=== PATIENT | male | born 1955 ===

== ENCOUNTER 2020-05-22 13:51 | Emergency (ER) | payer BC, OTHER ==
--- NOTE | 2020-05-22 14:03 | TELE ---
HPI Do you have fever,cough or shortness of breath?: No - General Reason For Visit: COVID TESTING History Source: Family Past History - Medical History Allergies/Adverse Reactions: Allergies Allergy/AdvReac Type Severity Reaction Status Date / Time No Known Allergies Allergy Unverified 05/08/14 22:49 Home Medications: Ambulatory Orders Ibuprofen [Advil -] 400 mg PO QID PRN 05/08/14 Naproxen [EC-Naprosyn 375 MG] 375 mg PO BID PRN #14 tablet.ec 05/08/14 Diabetes: Yes HTN: No - Surgical History Orthopedic Surgery: Yes - Psycho-Social/Smoking History Smoking History: Never smoked - Medical Decision Making 05/22/20 14:01 64 year old male requesting COVID testing for recent positive exposure. Patient is asymptomatic. Pt otherwise denies: fevers, chills, syncope, lightheadedness, dizziness, headaches, neck pain, chest pain, shortness of breath, palpitations, back pain, abdominal pain, nausea, vomiting, diarrhea, constipation. Physical exam deferred secondary to an inability to video chat Patient to proceed to [facility] for [facility] testing instructions below given via [facility] Pt instructed to self isolate until results given To obtain your prescribed COVID testing, go to the [facility] at [address] [place] [address]. Proceed across the parking lot to the GREEN parking spaces with COVID Testing signs next to the Emergency Room entrance. Call [phone] and our team will complete your testing. Thank you for using our Virtual Urgent Care service! Discharge Diagnosis at time of Disposition: Counseled about COVID-19 virus infection - Referrals - Patient Instructions Discharge Instructions: [facility]-Coronavirus Instructions - Discharge Disposition: HOME Condition at time of Disposition: Stable
== END 2020-05-22 14:03 | disposition home or self-care (01) ==
LOC: JVIRT 13:51
DX: Z20.828 Contact with and (suspected) exposure to other viral communicable diseases (principal)
CPT/HCPCS: 36415; 86769; 99441-95; U0003

== ENCOUNTER 2020-09-14 16:08 | Emergency (ER) | payer BC | END 2020-09-14 19:21 | disposition home or self-care (01) | LOC: JVIRT 16:08 | DX: U07.1 COVID-19 (principal) | CPT/HCPCS: 87880; C9803; G2012-GT; Q3014-GT; U0003 ==